=== PATIENT | female | born 1980 | race Caucasian/White ===

== ENCOUNTER 2020-02-21 12:46 | Emergency (ER) | payer MEDICAID ==
[~2020-02-21] VITALS: Ht 154.9 cm; Wt 63.5 kg
[2020-02-21 12:56] VITALS: BP 106/58
[2020-02-21 13:30] LABS: BASOPHILS # (AUTO) 0.1 K/uL (0.00-0.22); BASOPHILS % (AUTO) 1.1 % (0.0-2.0); EOSINOPHILS # (AUTO) 0.1 K/uL (0-0.4); EOSINOPHILS % (AUTO) 0.9 % (0.0-4.0); HEMATOCRIT 39.8 % (36-48); HEMOGLOBIN 13.8 g/dL (12.0-16.0); LYMPHOCYTES # (AUTO) 1.6 K/uL (2.5-16.5); LYMPHOCYTES % (AUTO) 21.7 % (20.5-51.1); MEAN CORPUSCULAR HEMOGLOBIN 32 pg (27-31); MEAN CORPUSCULAR HGB CONC 35 g/dL (33-37); MEAN CORPUSCULAR VOLUME 93.1 fL (80-94); MONOCYTES # (AUTO) 0.5 K/uL (0.8-1.0); MONOCYTES % (AUTO) 6.8 % (1.7-9.3); NEUTROPHILS # (AUTO) 5.2 K/uL (1.8-7.7); NEUTROPHILS % (AUTO) 69.5 % (42.2-75.2); PLATELET COUNT (AUTO) 221 K/uL (140-450); RED BLOOD CELL COUNT(AUTO) 4.27 MIL/uL (4.20-5.40); RED CELL DISTRIBUTION WIDTH 12.7 % (11.6-13.7); WHITE BLOOD COUNT (AUTO) 7.4 K/uL (4.8-10.8)
[2020-02-21 13:32] LABS: APPEARANCE,URINE SL CLOUDY (CLEAR); BILIRUBIN,URINE NEGATIVE (NEGATIVE); BLOOD, URINE TRACE-L (NEGATIVE); COLOR,URINE YELLOW (YELLOW); LEUKOCYTE ESTERASE ,URINE 1+ (NEGATIVE); NITRITE, URINE NEGATIVE (NEGATIVE); PH,URINE 5.5 (5.0-9.0); UGLUCOSE NEGATIVE (NEGATIVE)
[2020-02-21 13:43] LABS: RBC,URINE 0-5 /HPF (0-5)
[2020-02-21 15:52] VITALS: BP 110/60
== END 2020-02-21 15:52 | disposition home or self-care (01) ==
LOC: MED 12:46
DX: O26.891 Other specified pregnancy related conditions, first trimester (principal); R10.9 Unspecified abdominal pain; R10.2 Pelvic and perineal pain; Z88.0 Allergy status to penicillin; Z3A.01 Less than 8 weeks gestation of pregnancy
CPT/HCPCS: 36415; 76817; 81001; 81025; 84702; 85025; 86900; 86901; 87086; 99284; Q0092

== ENCOUNTER 2020-02-28 17:16 | Emergency (ER) | payer MEDICAID ==
[~2020-02-28] VITALS: Ht 149.9 cm; Wt 58.1 kg
[2020-02-28 17:45] VITALS: BP 109/69
[2020-02-28 18:29] LABS: BASOPHILS % (AUTO) 0.5 % (0.0-2.0); EOSINOPHILS # (AUTO) 0.1 K/uL (0-0.4); EOSINOPHILS % (AUTO) 0.6 % (0.0-4.0); HEMATOCRIT 37.8 % (36-48); HEMOGLOBIN 13.1 g/dL (12.0-16.0); LYMPHOCYTES # (AUTO) 2.3 K/uL (2.5-16.5); LYMPHOCYTES % (AUTO) 24.2 % (20.5-51.1); MEAN CORPUSCULAR HEMOGLOBIN 32 pg (27-31); MEAN CORPUSCULAR HGB CONC 35 g/dL (33-37); MEAN CORPUSCULAR VOLUME 92.9 fL (80-94); MONOCYTES # (AUTO) 0.5 K/uL (0.8-1.0); MONOCYTES % (AUTO) 5.5 % (1.7-9.3); NEUTROPHILS # (AUTO) 6.5 K/uL (1.8-7.7); NEUTROPHILS % (AUTO) 69.2 % (42.2-75.2); PLATELET COUNT (AUTO) 250 K/uL (140-450); RED BLOOD CELL COUNT(AUTO) 4.07 MIL/uL (4.20-5.40); RED CELL DISTRIBUTION WIDTH 12.7 % (11.6-13.7); WHITE BLOOD COUNT (AUTO) 9.4 K/uL (4.8-10.8)
[2020-02-28 19:36] LABS: APPEARANCE,URINE CLEAR (CLEAR); BILIRUBIN,URINE NEGATIVE (NEGATIVE); BLOOD, URINE 1+ (NEGATIVE); COLOR,URINE YELLOW (YELLOW); LEUKOCYTE ESTERASE ,URINE 1+ (NEGATIVE); NITRITE, URINE NEGATIVE (NEGATIVE); UGLUCOSE NEGATIVE (NEGATIVE)
[2020-02-28 19:37] VITALS: BP 109/69
== END 2020-02-28 19:38 | disposition home or self-care (01) ==
LOC: MED 17:16
DX: O20.0 Threatened abortion (principal); O99.89 Other specified diseases and conditions complicating pregnancy, childbirth and the puerperium; O26.859 Spotting complicating pregnancy, unspecified trimester; O23.40 Unspecified infection of urinary tract in pregnancy, unspecified trimester; Z3A.08 8 weeks gestation of pregnancy; Z88.0 Allergy status to penicillin
CPT/HCPCS: 36415; 76817; 81001; 81025; 84702; 85025; 86900; 86901; 87086; 99284; Q0092

== ENCOUNTER 2020-03-02 15:06 | Emergency (ER) | payer MEDICAID ==
[~2020-03-02] VITALS: Ht 104.1 cm; Wt 65.8 kg
[2020-03-02 15:10] VITALS: BP 98/56
[2020-03-02] MEDS ORDERED: ACETAMINOPHEN EXTRA STRENGTH 500 MG TAB PO ONE (15:30)
[2020-03-02 15:36] LABS: BASOPHILS % (AUTO) 0.5 % (0.0-2.0); EOSINOPHILS # (AUTO) 0.1 K/uL (0-0.4); EOSINOPHILS % (AUTO) 1.6 % (0.0-4.0); HEMATOCRIT 38.8 % (36-48); HEMOGLOBIN 13.1 g/dL (12.0-16.0); LYMPHOCYTES # (AUTO) 2.2 K/uL (2.5-16.5); LYMPHOCYTES % (AUTO) 25.1 % (20.5-51.1); MEAN CORPUSCULAR HEMOGLOBIN 32 pg (27-31); MEAN CORPUSCULAR HGB CONC 34 g/dL (33-37); MEAN CORPUSCULAR VOLUME 94.3 fL (80-94); MONOCYTES # (AUTO) 0.5 K/uL (0.8-1.0); MONOCYTES % (AUTO) 6.2 % (1.7-9.3); NEUTROPHILS # (AUTO) 5.8 K/uL (1.8-7.7); NEUTROPHILS % (AUTO) 66.6 % (42.2-75.2); PLATELET COUNT (AUTO) 239 K/uL (140-450); RED BLOOD CELL COUNT(AUTO) 4.12 MIL/uL (4.20-5.40); WHITE BLOOD COUNT (AUTO) 8.7 K/uL (4.8-10.8)
[2020-03-02 15:42] LABS: APPEARANCE,URINE SL CLOUDY (CLEAR); BILIRUBIN,URINE NEGATIVE (NEGATIVE); BLOOD, URINE 2+ (NEGATIVE); COLOR,URINE YELLOW (YELLOW); LEUKOCYTE ESTERASE ,URINE TRACE (NEGATIVE); NITRITE, URINE NEGATIVE (NEGATIVE); UGLUCOSE NEGATIVE (NEGATIVE)
[2020-03-02 15:51] LABS: YEAST,URINE None Seen /HPF (None Seen)
[2020-03-02 17:37] VITALS: BP 102/59
== END 2020-03-02 17:37 | disposition home or self-care (01) ==
LOC: MED 15:06
DX: O03.4 Incomplete spontaneous abortion without complication (principal); Z88.0 Allergy status to penicillin
CPT/HCPCS: 36415; 76817; 81001; 84702; 85025; 87086; 99284; Q0092

== ENCOUNTER 2020-03-07 10:01 | Emergency (ER) | payer MEDICAID ==
[~2020-03-07] VITALS: Ht 151.1 cm; Wt 57.8 kg
[2020-03-07 10:06] VITALS: BP 97/70
--- NOTE | 2020-03-07 10:15 | NUR ---
PT AMBULATED TO ER BED 11
--- NOTE | 2020-03-07 10:25 | NUR ---
lab at bedside
--- NOTE | 2020-03-07 10:32 | NUR ---
pt to us via wheelchair
[2020-03-07 10:37] LABS: BASOPHILS % (AUTO) 0.4 % (0.0-2.0); EOSINOPHILS # (AUTO) 0.1 K/uL (0-0.4); EOSINOPHILS % (AUTO) 1.4 % (0.0-4.0); HEMATOCRIT 37.7 % (36-48); HEMOGLOBIN 12.8 g/dL (12.0-16.0); LYMPHOCYTES # (AUTO) 1.9 K/uL (2.5-16.5); LYMPHOCYTES % (AUTO) 24.8 % (20.5-51.1); MEAN CORPUSCULAR HEMOGLOBIN 32 pg (27-31); MEAN CORPUSCULAR HGB CONC 34 g/dL (33-37); MEAN CORPUSCULAR VOLUME 93.6 fL (80-94); MONOCYTES # (AUTO) 0.4 K/uL (0.8-1.0); MONOCYTES % (AUTO) 5.4 % (1.7-9.3); NEUTROPHILS # (AUTO) 5.3 K/uL (1.8-7.7); PLATELET COUNT (AUTO) 233 K/uL (140-450); RED BLOOD CELL COUNT(AUTO) 4.03 MIL/uL (4.20-5.40); RED CELL DISTRIBUTION WIDTH 12.4 % (11.6-13.7); WHITE BLOOD COUNT (AUTO) 7.8 K/uL (4.8-10.8)
[2020-03-07 11:06] LABS: APPEARANCE,URINE CLOUDY (CLEAR); BILIRUBIN,URINE NEGATIVE (NEGATIVE); BLOOD, URINE 3+ (NEGATIVE); COLOR,URINE DARK YELLOW (YELLOW); LEUKOCYTE ESTERASE ,URINE TRACE (NEGATIVE); NITRITE, URINE NEGATIVE (NEGATIVE); UGLUCOSE NEGATIVE (NEGATIVE)
[2020-03-07 11:11] LABS: RBC,URINE 50-80 /HPF (0-5)
--- NOTE | 2020-03-07 11:12 | NUR ---
FATIMAH AT BEDSIDE
--- NOTE | 2020-03-07 11:28 | NUR ---
DR SHERIDAN AT BEDSIDE
[2020-03-07] MEDS ORDERED: MORPHINE SULFATE 4 MG/ML SYR IM ONE (11:30)
--- NOTE | 2020-03-07 11:30 | NUR ---
C/O SUPRAPUBIC PAIN RADIATING TO LOWER BACK PAIN X MONDAY. REPORTS MORE BLOOD THIS AM. VAGINAL BLEEDING X 3 DAYS. SEEN HERE 03/02/20 FOR MISCARRIGE. LMP 12/26/19. DENIES N/V/D. PAIN 07/18. SUPRAPUBIC REGION TENDER TO TOUCH. VS STABLE. PT ALERT AND AWAKE. VS STABLE. IG[employer] PHOTOSTATIC [employer]KER TRANSLATED FOR [facility] SPEAKING PT MED HX: DENIES
--- NOTE | 2020-03-07 11:47 | NUR ---
[facility] IM ADMINISTERED
[2020-03-07 12:17] VITALS: BP 108/63
--- NOTE | 2020-03-07 12:17 | NUR ---
Patient discharged with v/s stable. Written and verbal after care instructions given and explained in tamazight/german. Patient alert, oriented and verbalized understanding of instructions. Ambulatory with steady gait. All questions addressed prior to discharge. ID band removed. Patient advised to follow up with PMD. Rx of norco, zofran, and motrin given. Patient educated on indication of medication including possible reaction and side effects. Opportunity to ask questions provided and answered. pt states no questions given copy of us results
--- NOTE | 2020-03-07 12:17 | NUR ---
NADR, PAIN 01/16
== END 2020-03-07 12:17 | disposition home or self-care (01) ==
LOC: MED 10:01
DX: O03.9 Complete or unspecified spontaneous abortion without complication (principal); Z88.0 Allergy status to penicillin
CPT/HCPCS: 36415; 76817; 81001; 81025; 84702; 85025; 87086; 96372; 99284; J2270; Q0092

== ENCOUNTER 2021-08-15 15:37 | Emergency (ER) | payer MEDICAID ==
[~2021-08-15] VITALS: Ht 157.5 cm; Wt 57.6 kg
[2021-08-15 15:44] VITALS: BP 116/72
--- NOTE | 2021-08-15 15:50 | NUR ---
Patient ambulated with steady gait to bed 3.
--- NOTE | 2021-08-15 15:55 | NUR ---
41 Y/O FEMALE C/O VAGINAL BLEEDING WITH LARGE CLOTS PRESENT X3DAYS. PT STATES SUPRA PUBIC PAIN 10/10 DESCRIBES CRAMPING. PT IS 6WEEKS , SAW OB 08/09/21 AND TOLD NO HEART TONES AND REFERRED HERE. DENIES FEVER/CHILLS. DENIES N/V. LMP 06/17/21. T4 A2 L4. SKIN PINK/WARM/DRY. CAP REFILL IMMEDIATE. BED LOCKED IN LOWEST POSITION, SIDE RAILS X 1, CALL LIGHT IN REACH. DENIES PMH ALLERGIES: PCN
--- NOTE | 2021-08-15 16:00 | NUR ---
Lab at bedside. UA handed to CPT Roberta
[2021-08-15 16:09] LABS: APPEARANCE,URINE CLEAR (CLEAR); BILIRUBIN,URINE NEGATIVE (NEGATIVE); BLOOD, URINE 3+ (NEGATIVE); COLOR,URINE YELLOW (YELLOW); LEUKOCYTE ESTERASE ,URINE NEGATIVE (NEGATIVE); NITRITE, URINE NEGATIVE (NEGATIVE); PH,URINE 5.5 (5.0-9.0); UGLUCOSE NEGATIVE (NEGATIVE)
[2021-08-15 16:10] LABS: BASOPHILS # (AUTO) 0.1 K/uL (0.00-0.22); BASOPHILS % (AUTO) 1.1 % (0.0-2.0); EOSINOPHILS # (AUTO) 0.1 K/uL (0-0.4); EOSINOPHILS % (AUTO) 1.5 % (0.0-4.0); HEMATOCRIT 37.3 % (36-48); HEMOGLOBIN 12.9 g/dL (12.0-16.0); LYMPHOCYTES # (AUTO) 1.9 K/uL (2.5-16.5); LYMPHOCYTES % (AUTO) 24.5 % (20.5-51.1); MEAN CORPUSCULAR HEMOGLOBIN 32 pg (27-31); MEAN CORPUSCULAR HGB CONC 35 g/dL (33-37); MEAN CORPUSCULAR VOLUME 91.3 fL (80-94); MONOCYTES # (AUTO) 0.5 K/uL (0.8-1.0); NEUTROPHILS # (AUTO) 5.2 K/uL (1.8-7.7); NEUTROPHILS % (AUTO) 66.9 % (42.2-75.2); PLATELET COUNT (AUTO) 226 K/uL (140-450); RED BLOOD CELL COUNT(AUTO) 4.08 MIL/uL (4.20-5.40); RED CELL DISTRIBUTION WIDTH 13.1 % (11.6-13.7); WHITE BLOOD COUNT (AUTO) 7.7 K/uL (4.8-10.8)
[2021-08-15] MEDS ORDERED: HYDROcodone/APAP 5/325 MG 1 TAB TAB PO ONE (16:10)
--- NOTE | 2021-08-15 16:14 | NUR ---
US tech at bedside
--- NOTE | 2021-08-15 16:40 | NUR ---
Patient resting in position of comfort. States 0/10 pain after [place] PO. Denies any nausea. All pt needs met.
[2021-08-15 17:09] LABS: RBC,URINE 80-100 /HPF (0-5)
[2021-08-15] MEDS ORDERED: ACET-8386 PO (17:55)
[2021-08-15] MEDS ORDERED: IBUP-2230 PO (17:55)
--- NOTE | 2021-08-15 17:58 | NUR ---
Patient resting in position of comfort. Bed locked in lowest position, side rails x 1. Pain 0/10. All needs met.
[2021-08-15 18:02] VITALS: BP 110/59
--- NOTE | 2021-08-15 18:32 | NUR ---
Patient discharged with v/s stable. Written and verbal after care instructions given and explained. Patient alert, oriented and verbalized understanding of instructions. Ambulatory with steady gait. All questions addressed prior to discharge. ID band removed. Patient advised to follow up with PMD. Rx of Hyroconde/Acetaminophen, Ibuprofen given. Patient educated on indication of medication including possible reaction and side effects. Opportunity to ask questions provided and answered.
[2021-08-16] MEDS ORDERED: ACET-9535 PO (08:56)
[2021-08-16] MEDS ORDERED: ONDA-188 SL (08:58)
== END 2021-08-15 18:32 | disposition home or self-care (01) ==
LOC: MED 15:37
DX: O03.9 Complete or unspecified spontaneous abortion without complication (principal); Z88.0 Allergy status to penicillin; Z79.899 Other long term (current) drug therapy
CPT/HCPCS: 36415; 76817; 81001; 84702; 85025; 86900; 86901; 87086; 99284; Q0092

== ENCOUNTER 2021-08-16 06:40 | Emergency (ER) | payer MEDICAID ==
[~2021-08-16] VITALS: Ht 177.8 cm; Wt 56.7 kg
[~2021-08-16 06:40] MED LIST: ACET-8386 PO; IBUP-2230 PO
[2021-08-16 06:51] VITALS: BP 195/169
--- NOTE | 2021-08-16 06:51 | NUR ---
PT AMBULATED TO BED 09.
[2021-08-16] MEDS ORDERED: ONDANSETRON 4 MG ODT PO ONE (06:55)
[2021-08-16] MEDS ORDERED: MORPHINE SULFATE 4 MG/ML SYR IM ONE (06:55)
--- NOTE | 2021-08-16 07:15 | NUR ---
41 Y/O FEMALE C/O ABD PAIN TO LLQ, STARTED THIS AM AT 0500. WITH NAUSEA/VOMITING. DENIES ANY DIARRHEA OR CONSTIPATION. WAS SEEN HERE YESTERDAY FOR MISCARRIAGE. ABD SOFT NON TENDER. ALLERGIES: PENICILLIN
--- NOTE | 2021-08-16 07:24 | NUR ---
BLOOD LABS COLLECTED AND HANDED TO HANK CHAPIN
[2021-08-16 07:43] LABS: BASOPHILS % (AUTO) 0.4 % (0.0-2.0); EOSINOPHILS # (AUTO) 0.1 K/uL (0-0.4); EOSINOPHILS % (AUTO) 1.1 % (0.0-4.0); HEMOGLOBIN 13.1 g/dL (12.0-16.0); LYMPHOCYTES # (AUTO) 1.6 K/uL (2.5-16.5); LYMPHOCYTES % (AUTO) 24.4 % (20.5-51.1); MEAN CORPUSCULAR HEMOGLOBIN 32 pg (27-31); MEAN CORPUSCULAR HGB CONC 35 g/dL (33-37); MONOCYTES # (AUTO) 0.4 K/uL (0.8-1.0); MONOCYTES % (AUTO) 6.1 % (1.7-9.3); NEUTROPHILS # (AUTO) 4.5 K/uL (1.8-7.7); PLATELET COUNT (AUTO) 223 K/uL (140-450); RED BLOOD CELL COUNT(AUTO) 4.18 MIL/uL (4.20-5.40); RED CELL DISTRIBUTION WIDTH 13.4 % (11.6-13.7); WHITE BLOOD COUNT (AUTO) 6.7 K/uL (4.8-10.8)
[2021-08-16 07:49] LABS: ALBUMIN 3.7 g/dL (3.4-5.0); ANION GAP 7.8 (8-16); CARBON DIOXIDE 24.8 mmol/L (21-32); CREATININE 0.8 mg/dL (0.6-1.3); POTASSIUM 3.6 mmol/L (3.5-5.1); TOTAL BILIRUBIN 0.4 mg/dL (0.0-1.0)
[2021-08-16] MEDS ORDERED: ACET-9535 PO (08:56)
[2021-08-16] MEDS ORDERED: ONDA-188 SL (08:58)
[2021-08-16 09:09] VITALS: BP 104/57
--- NOTE | 2021-08-16 09:09 | NUR ---
Patient discharged with v/s stable. Written and verbal after care instructions given and explained. Patient alert, oriented and verbalized understanding of instructions. Ambulatory with steady gait. All questions addressed prior to discharge. ID band removed. Patient advised to follow up with PMD. Rx of ZOFRAN AND HYDROCODONE/ACETAMINOPHEN given. Patient educated on indication of medication including possible reaction and side effects. Opportunity to ask questions provided and answered.
== END 2021-08-16 09:09 | disposition home or self-care (01) ==
LOC: MED 06:40
DX: O03.9 Complete or unspecified spontaneous abortion without complication (principal); R10.2 Pelvic and perineal pain; Z3A.00 Weeks of gestation of pregnancy not specified; Z79.899 Other long term (current) drug therapy; Z79.1 Long term (current) use of non-steroidal anti-inflammatories (NSAID); Z79.891 Long term (current) use of opiate analgesic; Z88.0 Allergy status to penicillin
CPT/HCPCS: 36415; 80053; 81025; 84702; 85025; 96374; 99283; J2270; Q0162

== ENCOUNTER 2022-02-03 18:12 | Emergency (ER) | payer MEDICAID ==
[~2022-02-03] VITALS: Ht 152.4 cm; Wt 63.3 kg
[~2022-02-03 18:12] MED LIST changes: +ACET-9535 PO; +ONDA-188 SL
[2022-02-03 18:30] VITALS: BP 104/54
--- NOTE | 2022-02-03 18:38 | NUR ---
PT AMB TO BED 12.
--- NOTE | 2022-02-03 18:39 | NUR ---
BIB SELF C/O DIZZINESS, LEFT Head, LEFT EYE, LEFT EAR, LEFT SHOULDER PAIN X TODAY.PMH: DENIES.DENIES V/D; SKIN IS PINK/WARM/DRY; AAOX4 WITH EVEN AND STEADY GAIT; LUNGS CLEAR BL; HR EVEN AND REGULAR; PT DENIES ANY FEVER, CP, SOB, OR COUGH AT THIS TIME. PATIENT POSITIONED FOR COMFORT; HOB ELEVATED; BEDRAILS UP X1; BED DOWN. ER MD MADE AWARE OF PT STATUS.
[2022-02-03] MEDS ORDERED: KETOROLAC 60 MG/2 ML VIAL IM ONE (18:45)
--- NOTE | 2022-02-03 19:23 | NUR ---
GAVE REPORT TO STEPHANIE REIS. TRANSFER OF CARE AT THIS TIME.
--- NOTE | 2022-02-03 19:30 | NUR ---
RESTING QUIETLY. STATES SLIGHT RELIEF FOLLOWING PAIN MEDICATION
[2022-02-03] MEDS ORDERED: ACET-8386 PO (20:28)
[2022-02-03] MEDS ORDERED: IBUP-2213 PO (20:28)
[2022-02-03 20:31] VITALS: BP 104/54
--- NOTE | 2022-02-03 20:31 | NUR ---
Patient discharged with v/s stable. Written and verbal after care instructions given and explained. Patient alert, oriented and verbalized understanding of instructions. Ambulatory with steady gait. All questions addressed prior to discharge. ID band removed. Patient advised to follow up with PMD. Rx of HYDROCODONE-ACETAMINOPHEN given. Patient educated on indication of medication including possible reaction and side effects. Opportunity to ask questions provided and answered.
== END 2022-02-03 20:31 | disposition home or self-care (01) ==
LOC: MED 18:12
DX: R51.9 Headache, unspecified (principal); Z79.899 Other long term (current) drug therapy; Z88.0 Allergy status to penicillin
CPT/HCPCS: 81002; 81025; 96372; 99283; J1885

== ENCOUNTER 2022-03-31 22:14 | Emergency (ER) | payer MEDICAID ==
[~2022-03-31] VITALS: Ht 152.4 cm; Wt 61.0 kg
[~2022-03-31 22:14] MED LIST changes: +IBUP-2213 PO
[2022-03-31 22:24] VITALS: BP 110/68
--- NOTE | 2022-03-31 22:27 | NUR ---
TO LOBBY A/W BED AMBULATORY
--- NOTE | 2022-03-31 22:50 | NUR ---
PT AMBULATED TO BED #5
--- NOTE | 2022-03-31 23:14 | NUR ---
41 Y/O F BIB SELF FOR LOWER BACK / FLANK PAIN X 2 DAYS . PT PAIN PAIN DURING URINATION. PT DENIES N/V/D; SKIN IS PINK/WARM/DRY; AAOX4 WITH EVEN AND STEADY GAIT; LUNGS CLEAR BL; HR EVEN AND REGULAR; PT DENIES ANY FEVER, CP, SOB, OR COUGH AT THIS TIME; PATIENT STATES PAIN OF 6/10 AT THIS TIME; VSS; PT DENIES PMH PT DENIES RX
[2022-03-31] MEDS ORDERED: cephALEXin 500 MG CAP PO ONE (23:35)
[2022-03-31] MEDS ORDERED: ACETAMINOPHEN EXTRA STRENGTH 500 MG TAB PO ONE (23:35)
[2022-03-31] MEDS ORDERED: PHEN-1877 PO (23:37)
[2022-03-31] MEDS ORDERED: CEPH-588 PO (23:37)
--- NOTE | 2022-03-31 23:40 | NUR ---
pt laying down. bed in lowest position. pt resting
[2022-04-01 00:10] VITALS: BP 112/66
--- NOTE | 2022-04-01 00:10 | NUR ---
Patient discharged with v/s stable. Written and verbal after care instructions given and explained. Patient alert, oriented and verbalized understanding of instructions. Ambulatory with steady gait. All questions addressed prior to discharge. ID band removed. Patient advised to follow up with PMD. Rx of keflex and pyridium given. Opportunity to ask questions provided and answered.
--- NOTE | 2022-04-01 00:47 | NUR ---
The patient's care was reviewed and supervised by Olga Coulter RN.
== END 2022-04-01 00:10 | disposition home or self-care (01) ==
LOC: MED 22:14
DX: N39.0 Urinary tract infection, site not specified (principal); Z88.0 Allergy status to penicillin
CPT/HCPCS: 81002; 81025; 99283

== ENCOUNTER 2022-05-24 16:45 | Emergency (ER) | payer MEDICAID ==
[~2022-05-24] VITALS: Ht 149.9 cm; Wt 62.1 kg
[~2022-05-24 16:45] MED LIST changes: +CEPH-588 PO; +PHEN-1877 PO
[2022-05-24 17:14] VITALS: BP 108/74
[2022-05-24] MEDS ORDERED: IBUP-1842 PO (17:53)
[2022-05-24] MEDS ORDERED: CEPH-588 PO (17:53)
[2022-05-24 18:23] VITALS: BP 108/74
--- NOTE | 2022-05-24 18:24 | NUR ---
Patient discharged with v/s stable. Written and verbal after care instructions ABOUT CELLULITIS given and explained. Patient alert, oriented and verbalized understanding of instructions. Ambulatory with steady gait. All questions addressed prior to discharge. ID band removed. Patient advised to follow up with PMD. Rx of KEFLEX AND IBUPROFEN given. Patient educated on indication of medication including possible reaction and side effects. Opportunity to ask questions provided and answered.
== END 2022-05-24 18:24 | disposition home or self-care (01) ==
LOC: MED 16:45
DX: L03.116 Cellulitis of left lower limb (principal); Z88.0 Allergy status to penicillin
CPT/HCPCS: 99283

== ENCOUNTER 2023-01-17 17:12 | Emergency (ER) | payer MEDICAID ==
[~2023-01-17] VITALS: Ht 149.9 cm; Wt 64.9 kg
[~2023-01-17 17:12] MED LIST changes: -ACET-8386 PO; +ACET-8905 PO; +IBUP-1842 PO
[2023-01-17 17:35] VITALS: BP 101/72
--- NOTE | 2023-01-17 17:38 | NUR ---
PT AMBULATED TO ER BED 9
--- NOTE | 2023-01-17 17:40 | NUR ---
42/F WALKED IN C/O NVD X 3 DAYS. PT REPORTS 20+ EPISODES OF DIARRHEA PER DAY. DENIES FEVER. DENIES BLOOD IN STOOL. AAO4, AMBULATORY, VITALS STABLE. ON ROOM AIR. NOT ACTIVELY VOMITING AT BEDSIDE. ALLERGY: PCN PMH: DENIES
[2023-01-17] MEDS ORDERED: ONDANSETRON 4 MG/2 ML VIAL IVP ONE (18:00)
[2023-01-17] MEDS ORDERED: NACL 0.9% 1,000 ML IV SCH (18:00)
[2023-01-17 18:16] LABS: BASOPHILS # (AUTO) 0.1 K/uL (0.00-0.22); BASOPHILS % (AUTO) 0.7 % (0.0-2.0); EOSINOPHILS # (AUTO) 0.2 K/uL (0-0.4); EOSINOPHILS % (AUTO) 1.9 % (0.0-4.0); HEMATOCRIT 37.8 % (36-48); HEMOGLOBIN 13.2 g/dL (12.0-16.0); LYMPHOCYTES # (AUTO) 2.4 K/uL (2.5-16.5); LYMPHOCYTES % (AUTO) 30.1 % (20.5-51.1); MEAN CORPUSCULAR HEMOGLOBIN 32 pg (27-31); MEAN CORPUSCULAR HGB CONC 35 g/dL (33-37); MEAN CORPUSCULAR VOLUME 90.6 fL (80-94); MONOCYTES # (AUTO) 0.7 K/uL (0.8-1.0); MONOCYTES % (AUTO) 8.4 % (1.7-9.3); NEUTROPHILS # (AUTO) 4.7 K/uL (1.8-7.7); NEUTROPHILS % (AUTO) 58.9 % (42.2-75.2); PLATELET COUNT (AUTO) 223 K/uL (140-450); RED BLOOD CELL COUNT(AUTO) 4.17 MIL/uL (4.20-5.40); RED CELL DISTRIBUTION WIDTH 12.7 % (11.6-13.7)
[2023-01-17 18:19] LABS: BILIRUBIN,URINE NEGATIVE (NEGATIVE); BLOOD, URINE 1+ (NEGATIVE); COLOR,URINE YELLOW (YELLOW); LEUKOCYTE ESTERASE ,URINE NEGATIVE (NEGATIVE); NITRITE, URINE NEGATIVE (NEGATIVE); UGLUCOSE NEGATIVE (NEGATIVE)
[2023-01-17 18:31] LABS: APPEARANCE,URINE HAZY (CLEAR)
[2023-01-17 18:32] LABS: WBC,URINE 0-5 /HPF (0-5)
[2023-01-17 18:34] LABS: ALBUMIN 3.6 g/dL (3.4-5.0); ANION GAP 13.4 (8-16); CARBON DIOXIDE 24.2 mmol/L (21-32); POTASSIUM 3.6 mmol/L (3.5-5.1); TOTAL BILIRUBIN 0.3 mg/dL (0.0-1.0)
[2023-01-17 18:34] LABS: URINE AMORPHOUS URATE 2+ /HPF (None Seen)
--- NOTE | 2023-01-17 19:34 | NUR ---
Karissa schilling in [facility] - 01/17/23 at 2035 by [email or web address] for imaging.
--- NOTE | 2023-01-17 19:47 | NUR ---
URINE WALKED TO LAB.
--- NOTE | 2023-01-17 20:30 | NUR ---
PT TAKEN TO CT
[2023-01-17] MEDS ORDERED: ONDA-188 PO (22:39)
--- NOTE | 2023-01-17 23:02 | NUR ---
Patient discharged with v/s stable. Written and verbal after care instructions given and explained. Patient alert, oriented and verbalized understanding of instructions. All questions addressed prior to discharge. ID band removed. Patient advised to follow up with PMD. Rx of Zofran sent to preferred pharmacy. Patient educated on indication of medication including possible reaction and side effects. Opportunity to ask questions provided and answered.
[2023-01-17 23:06] VITALS: BP 111/69
== END 2023-01-17 23:02 | disposition home or self-care (01) ==
LOC: MED 17:12
DX: R10.31 Right lower quadrant pain (principal); R10.32 Left lower quadrant pain; R10.33 Periumbilical pain; R11.2 Nausea with vomiting, unspecified; R19.7 Diarrhea, unspecified; Z79.1 Long term (current) use of non-steroidal anti-inflammatories (NSAID); Z79.2 Long term (current) use of antibiotics; Z79.891 Long term (current) use of opiate analgesic; Z79.899 Other long term (current) drug therapy; Z88.0 Allergy status to penicillin
CPT/HCPCS: 36415; 74177; 80053; 81001; 81025; 83690; 85025; 96361; 96374; 99285; J2405; J7030; Q9967

== ENCOUNTER 2023-01-30 11:01 | Emergency (ER) | payer MEDICAID ==
[~2023-01-30] VITALS: Ht 144.8 cm; Wt 65.8 kg
[~2023-01-30 11:01] MED LIST changes: +ONDA-188 PO
[2023-01-30 11:12] VITALS: BP 119/80
--- NOTE | 2023-01-30 11:16 | NUR ---
DENTAL PAIN, FACIAL SWELLING/NUMBNESS, HEADACHE ONSET YESTERDAY. DENIES FEVERS.
--- NOTE | 2023-01-30 12:26 | NUR ---
PT. AMB. TO CHAIR B WITH NO DIFFICULTY
[2023-01-30] MEDS ORDERED: CLIN150C1 PO (13:10)
[2023-01-30] MEDS ORDERED: NAPR-1704 PO (13:10)
--- NOTE | 2023-01-30 13:18 | NUR ---
Patient discharged with v/s stable. Written and verbal after care instructions given and explained. Patient alert, oriented and verbalized understanding of instructions. Ambulatory with steady gait. All questions addressed prior to discharge. ID band removed. Patient advised to follow up with PMD. Rx of CLINDAMYCIN, NAPROXEN given. Patient educated on indication of medication including possible reaction and side effects. Opportunity to ask questions provided and answered.
== END 2023-01-30 13:18 | disposition home or self-care (01) ==
LOC: MED 11:01
DX: K05.10 Chronic gingivitis, plaque induced (principal); Z79.899 Other long term (current) drug therapy
CPT/HCPCS: 99283

== ENCOUNTER 2023-12-06 21:31 | Emergency (ER) | payer MEDICAID ==
[~2023-12-06] VITALS: Ht 149.9 cm; Wt 60.8 kg
[~2023-12-06 21:31] MED LIST changes: +CLIN150C1 PO; +NAPR-1704 PO
[2023-12-06 21:45] VITALS: BP 110/74; PULSE 71; RESP 17; TEMP 97.7; O2SAT 98
[2023-12-07] MEDS: metFORMIN 500 MG TAB PO ONE (00:18)
[2023-12-07] MEDS ORDERED: METF-346 PO (00:19)
[2023-12-07 00:30] VITALS: BP 115/76; PULSE 70; RESP 18; TEMP 97.7; O2SAT 98
== END 2023-12-07 00:30 | disposition home or self-care (01) ==
LOC: MED 21:31
DX: E11.9 Type 2 diabetes mellitus without complications (principal); Z88.0 Allergy status to penicillin; Z79.4 Long term (current) use of insulin; Z79.899 Other long term (current) drug therapy
CPT/HCPCS: 82948; 99283

== ENCOUNTER 2024-04-17 10:39 | Emergency (ER) | payer SELFPAY ==
[~2024-04-17] VITALS: Ht 154.9 cm; Wt 78.5 kg
[~2024-04-17 10:39] MED LIST changes: +METF-346 PO
[2024-04-17 10:41] VITALS: BP 109/70; PULSE 89; PULSE 9; RESP 18; TEMP 98.2; O2SAT 5; O2SAT 95
[2024-04-17 11:22] LABS: BASOPHILS % (AUTO) 0.4 % (0.0-2.0); EOSINOPHILS # (AUTO) 0.1 K/uL (0-0.4); EOSINOPHILS % (AUTO) 0.7 % (0.0-4.0); HEMATOCRIT 38.7 % (36-48); HEMOGLOBIN 12.9 g/dL (12.0-16.0); LYMPHOCYTES # (AUTO) 1.7 K/uL (2.5-16.5); LYMPHOCYTES % (AUTO) 15.1 % (20.5-51.1); MEAN CORPUSCULAR HEMOGLOBIN 30 pg (27-31); MEAN CORPUSCULAR HGB CONC 33 g/dL (33-37); MEAN CORPUSCULAR VOLUME 90.9 fL (80-94); MONOCYTES # (AUTO) 0.7 K/uL (0.8-1.0); MONOCYTES % (AUTO) 6.1 % (1.7-9.3); NEUTROPHILS % (AUTO) 77.7 % (42.2-75.2); PLATELET COUNT (AUTO) 247 K/uL (140-450); RED BLOOD CELL COUNT(AUTO) 4.26 MIL/uL (4.20-5.40); RED CELL DISTRIBUTION WIDTH 13.6 % (11.6-13.7); WHITE BLOOD COUNT (AUTO) 11.6 K/uL (4.8-10.8)
[2024-04-17 11:26] VITALS: O2SAT 98
[2024-04-17] MEDS: NACL 0.9% 1,000 ML IV ONE (11:26)
[2024-04-17 11:36] LABS: APPEARANCE,URINE CLEAR (CLEAR); BILIRUBIN,URINE NEGATIVE (NEGATIVE); BLOOD, URINE 3+ (NEGATIVE); COLOR,URINE YELLOW (YELLOW); LEUKOCYTE ESTERASE ,URINE 1+ (NEGATIVE); NITRITE, URINE NEGATIVE (NEGATIVE); PH,URINE 8.5 (5.0-9.0); PROTEIN,URINE 2+ (NEGATIVE); UGLUCOSE NEGATIVE (NEGATIVE); UROBILINOGEN,URINE 0.2 EU/dL (0.2 - 1)
[2024-04-17 11:38] LABS: ANION GAP 11.8 (8-16); CARBON DIOXIDE 24.5 mmol/L (21-32); CREATININE 0.7 mg/dL (0.6-1.3); POTASSIUM 3.3 mmol/L (3.5-5.1)
[2024-04-17] MEDS: ONDANSETRON 4 MG/2 ML VIAL IVP ONE (11:39)
[2024-04-17] MEDS: KETOROLAC 30 MG/ML VIAL IVP ONE (11:40)
[2024-04-17 11:42] LABS: ALBUMIN 3.6 g/dL (3.4-5.0); BILIRUBIN,DIRECT 0.1 mg/dL (0.0-0.3); TOTAL BILIRUBIN 0.3 mg/dL (0.0-1.0); TOTAL PROTEIN, SERUM 7.5 g/dL (6.4-8.2)
[2024-04-17 11:49] LABS: RBC,URINE >20 (MANY) /HPF (0-5); WBC,URINE 16-25 (MOD) /HPF (0-5)
[2024-04-17 11:51] LABS: BACTERIA,URINE 1+ /HPF (None Seen); SQUAMOUS EPITHELIAL CELL,UR 0-3 (FEW) /LPF (0-3 (FEW))
[2024-04-17 13:33] VITALS: BP 115/72; PULSE 87; RESP 18; TEMP 98; O2SAT 98
[2024-04-17] MEDS ORDERED: ONDA-188 PO (13:42)
[2024-04-17] MEDS ORDERED: PYR100 PO (13:42)
[2024-04-17] MEDS ORDERED: KETO10TA2 PO (13:42)
[2024-04-17] MEDS ORDERED: CIPR500T4 PO (13:42)
== END 2024-04-17 13:50 | disposition home or self-care (01) ==
LOC: MED 10:39
DX: N10 Acute pyelonephritis (principal); E11.9 Type 2 diabetes mellitus without complications; Z79.899 Other long term (current) drug therapy; Z88.0 Allergy status to penicillin
CPT/HCPCS: 36415; 74176; 80048; 80076; 81001; 81025; 83690; 85025; 87086; 87186; 96361; 96374; 96375; 99285; J1885; J2405; J7030

== ENCOUNTER 2024-06-14 21:37 | Emergency (ER) | payer OTHER ==
[~2024-06-14] VITALS: Ht 177.8 cm; Wt 59.0 kg
[~2024-06-14 21:37] MED LIST changes: +CIPR500T4 PO; +KETO10TA2 PO; +PYR100 PO
[2024-06-14 21:41] VITALS: BP 102/68; PULSE 72; RESP 18; TEMP 97.8; O2SAT 99
[2024-06-14] MEDS: NACL 0.9% 1,000 ML IV ONE (22:24)
[2024-06-14 22:31] LABS: ANION GAP 15.2 (8-16); CALCIUM 8.6 mg/dL (8.5-10.1); CARBON DIOXIDE 24.4 mmol/L (21-32); CREATININE 0.8 mg/dL (0.6-1.3); POTASSIUM 3.6 mmol/L (3.5-5.1)
[2024-06-14 22:32] LABS: BASOPHILS % (AUTO) 0.4 % (0.0-2.0); EOSINOPHILS # (AUTO) 0.1 K/uL (0-0.4); EOSINOPHILS % (AUTO) 1.2 % (0.0-4.0); HEMATOCRIT 37.8 % (36-48); HEMOGLOBIN 12.7 g/dL (12.0-16.0); LYMPHOCYTES # (AUTO) 2.6 K/uL (2.5-16.5); LYMPHOCYTES % (AUTO) 27.9 % (20.5-51.1); MEAN CORPUSCULAR HEMOGLOBIN 31 pg (27-31); MEAN CORPUSCULAR HGB CONC 34 g/dL (33-37); MEAN CORPUSCULAR VOLUME 90.8 fL (80-94); MONOCYTES # (AUTO) 0.7 K/uL (0.8-1.0); MONOCYTES % (AUTO) 7.8 % (1.7-9.3); NEUTROPHILS # (AUTO) 5.9 K/uL (1.8-7.7); NEUTROPHILS % (AUTO) 62.7 % (42.2-75.2); PLATELET COUNT (AUTO) 239 K/uL (140-450); RED BLOOD CELL COUNT(AUTO) 4.17 MIL/uL (4.20-5.40); RED CELL DISTRIBUTION WIDTH 13.2 % (11.6-13.7); WHITE BLOOD COUNT (AUTO) 9.4 K/uL (4.8-10.8)
[2024-06-14 22:36] LABS: BILIRUBIN,URINE NEGATIVE (NEGATIVE); BLOOD, URINE TRACE-I (NEGATIVE); COLOR,URINE YELLOW (YELLOW); LEUKOCYTE ESTERASE ,URINE 2+ (NEGATIVE); NITRITE, URINE POSITIVE (NEGATIVE); PROTEIN,URINE NEGATIVE (NEGATIVE); UGLUCOSE NEGATIVE (NEGATIVE); UROBILINOGEN,URINE 0.2 EU/dL (0.2 - 1)
[2024-06-14 22:37] LABS: APPEARANCE,URINE HAZY (CLEAR)
[2024-06-14 22:37] LABS: ALBUMIN 3.4 g/dL (3.4-5.0); BILIRUBIN,DIRECT 0.1 mg/dL (0.0-0.3); TOTAL BILIRUBIN 0.5 mg/dL (0.0-1.0); TOTAL PROTEIN, SERUM 7.4 g/dL (6.4-8.2)
[2024-06-14 22:47] LABS: BACTERIA,URINE 3+ /HPF (None Seen); MUCUS,URINE None Seen /LPF (None Seen); RBC,URINE 0-5 /HPF (0-5); SQUAMOUS EPITHELIAL CELL,UR 4-10 (MOD) /LPF (0-3 (FEW))
[2024-06-14] MEDS: ONDANSETRON 4 MG/2 ML VIAL IVP ONE (23:04)
[2024-06-14] MEDS: MORPHINE SULFATE 4 MG/ML SYR IVP ONE (23:05)
[2024-06-14] MEDS ORDERED: cefTRIAXone 1,000 MG VIAL ONE (23:52)
[2024-06-15] MEDS ORDERED: NITR100C7 PO (00:51)
[2024-06-19 23:39] VITALS: BP 122/77; PULSE 89; RESP 19; O2SAT 96
== END 2024-06-15 00:55 | disposition home or self-care (01) ==
LOC: MED 21:37
DX: N39.0 Urinary tract infection, site not specified (principal); R11.2 Nausea with vomiting, unspecified; E11.9 Type 2 diabetes mellitus without complications; Z79.899 Other long term (current) drug therapy; Z88.0 Allergy status to penicillin
CPT/HCPCS: 36415; 76700; 80048; 80076; 81001; 82150; 83690; 85025; 87040; 87086; 87186; 96361; 96365; 96375; 99285; J0696; J2270; J2405; J7030